=== PATIENT | female | born 1945 | race Caucasian/White ===

== ENCOUNTER 2016-10-12 19:41 | Inpatient (IN) | payer MEDICARE, OTHER ==
--- NOTE | ~2016-10-12 | DS ---
Discharge Summary [facility] [address] [place]. [address] NAME: MICHELINE PADILLA : 45 STATUS : DIS IN PAT#: [id number] AGE: 71 ADM/REG DATE : 10/12/16 MR#: [id number] REPORT SERV DATE: 10/22/16 DICTATED BY: ROCHELLE NICKERSON DATE: 10/21/16 REPORT STATUS : Draft TRANSCRIBED BY: MODL DATE: 10/21/16 ADMISSION DATE: 10/12/2016 DISCHARGE DATE: 10/21/2016 DIAGNOSES OF DISCHARGE: 1. Acute on chronic hypoxic hypercapnic respiratory failure, resolved. 2. Acute bronchitis. 3. Obstructive sleep apnea, on BiPAP at night. 4. Muscular dystrophy with quadriplegia. 5. Diabetes type 2, insulin dependent. 6. Hypertension. 7. Elevated liver function tests, resolved. 8. History of Crohn's disease. 9. Anxiety disorder. CONSULTANTS ON THE CASE: Pulmonary, Dr. Dickens; and Eugenio Apodaca, Pulmonary. PROCEDURE DONE DURING THIS HOSPITALIZATION: Include chest x-ray, portable, on 10/17/2016, showing stable chest x-ray. Repeat chest x-ray on 10/19/2016 show left basilar atelectasis versus small consolidation as well as left pleural effusion and right basilar atelectasis. Left hand x-ray shows no acute bone abnormality. There are some mild soft tissue swelling of the left hand and prominence of the thumb, but no other abnormalities. The patient's blood cultures have remained negative at discharge. HOSPITAL COURSE: This is a very pleasant 71-year-old female who is a patient of Dr. Kole Spicer, her primary care provider, Dr. Bhargav Krishna is her university services program associate. That she has a past medical history of muscular dystrophy with restrictive lung disease, presenting to [facility] with productive cough, wheezing, and increasing shortness of breath. It is very important to note that the patient has a BiPAP and used for obstructive sleep apnea at night. The patient has been admitted to Hospitalist Service with acute on chronic hypoxic hypercapnic respiratory failure as well as acute bronchitis with reactive airway disease. The patient use oxygen intermittently, and at her baseline, she is wheelchair bound. Here in the hospital, the patient has been placed on aggressive bronchodilator treatment nebulizers as well as BiPAP at night and p.r.n. for increasing shortness of breath. Her symptoms started to improve slowly and she required less BiPAP during the day and only on night. She did have an episode of elevation in liver function tests, but that has been resolved and also she had some increase of the white count, likely related to her steroids that has been tapered very slowly. The patient symptomatology improved and her acute on chronic hypercapnic respiratory failure resolved. On 10/21/2016, the patient has been ready for discharge from the pulmonary standpoint. MEDICATIONS AT DISCHARGE: Include aspirin 81 mg p.o. daily, Tenormin 25 after supper, coenzyme Q10 of 100 mg p.o. daily, also insulin regular per sliding scale and insulin NPH 12 units twice a day, Levaquin 750 p.o. daily for six more days, Cozaar 50 b.i.d., multivitamin one tablet p.o. daily, Protonix 40 p.o. daily, fish oil 1000 mg p.o. daily, Florastor one capsule p.o. b.i.d. six days, Zoloft 50 mg p.o. daily, Zoloft 10 mg p.o. daily, Sterapred Discharge Summary [address] [address] NAME: MICHELINE PADILLA : 45 STATUS : DIS IN PAT#: [id number] AGE: 71 ADM/REG DATE : 10/12/16 MR#: [id number] REPORT SERV DATE: 10/22/16 DICTATED BY: ROCHELLE NICKERSON DATE: 10/21/16 REPORT STATUS : Draft TRANSCRIBED BY: JAYE DATE: 10/21/16 double strength six-day pack #1 use as directed, and DuoNeb q.4 hours p.r.n. for shortness of breath. The patient was scheduled to have a polysomnography as an outpatient while she was in the hospital, so we are going to reschedule the outpatient polysomnography. Also, we will arrange a pulmonary followup with Dr. Krishna tomorrow or Tuesday on the 10/22/2016, 10/23/2016 and PCP follow up with Dr. Kole Spicer, PCP, in one week after discharge. We will arrange home health as well. This has been discussed extensively with the patient and the family. All the questions have been answered in full. CF/MODL Rochelle Nickerson M.D. / [id number] CC: Shilpi Pappas M.D. Nathan Mull IV, M.D.
--- NOTE | ~2016-10-12 | CN ---
Consultation Report [address] [place]. [address] NAME: MICHELINE PADILLA : 45 STATUS : ADM IN [facility]#: [id number] AGE: 71 ADM/REG DATE : 10/12/16 MR#: [id number] REPORT SERV DATE: 10/14/16 DICTATED BY: BASSEM DICKENS DATE: 10/13/16 REPORT STATUS : Draft TRANSCRIBED BY: MODL DATE: 10/13/16 PULMONARY CONSULT NOTE DATE OF CONSULTATION: 10/13/2016 REASON FOR CONSULTATION: Acute hypoxic respiratory failure. CHIEF COMPLAINT: Coughing and wheezing which started 24 hours ago. HISTORY OF PRESENT ILLNESS: Mrs. Padilla is a 71-year-old female with a past medical history of muscular dystrophy which is adult onset who had an acute onset of wheezing which started 24 hours ago and started producing sputum, she has been started on IV antibiotics and already feels better. She has had no sick contacts. However, the oxygen requirement is new, her chest x-ray shows minimal atelectasis. She does have sleep apnea and uses BiPAP at nighttime. Otherwise, the patient has no significant other symptoms other than what was noted above. PAST MEDICAL HISTORY: Muscular dystrophy, Crohn's disease, obstructive sleep apnea, diabetes, hyperlipidemia, history of nephrolithiasis, hyperlipidemia, pancreatitis, diastolic heart failure, pericardial effusion, and diverticulitis. HOME MEDICATIONS: Medication list reviewed, no significant pulmonary medications. ALLERGIES: IV CONTRAST, REGLAN, CODEINE. SOCIAL HISTORY: The patient has a history of smoking but quit around 15 years ago, currently . She is wheelchair bound. FAMILY HISTORY: Other family members with diabetes and heart disease along with multiple other cancers. REVIEW OF SYSTEMS: All pertinent review of systems reviewed and is otherwise negative. PHYSICAL EXAMINATION: VITAL SIGNS: Currently afebrile, heart rate 80s to 90s, respiratory rate around 15 to 20, oxygen saturation currently above 95% on 5 L, blood pressure currently systolic between 130s and 150s. HEENT: The patient has a thick neck consistent with that of someone who has sleep apnea. Neck is supple. PULMONARY: Diffuse bilateral wheezing with mild crackles, adequate air movement. CARDIAC: Regular rate, no murmurs. ABDOMEN: Soft, nontender, nondistended. EXTREMITIES: No significant lower extremity edema, pulses bilaterally. Consultation Report [address] [place]. [address] NAME: MICHELINE PADILLA : 45 STATUS : ADM IN PAT#: [id number] AGE: 71 ADM/REG DATE : 10/12/16 MR#: [id number] REPORT SERV DATE: 10/14/16 DICTATED BY: BASSEM DICKENS DATE: 10/13/16 REPORT STATUS : Draft TRANSCRIBED BY: MODL DATE: 10/13/16 MUSCULAR: Muscles are flaccid in the lower extremity with minimal upper extremity movement but can lift her arms against gravity. LABORATORY EXAMINATION: Mild leukocytosis which is improving, hemoglobin elevated at 17.7, procalcitonin negative, good kidney function. Bicarbonate is 24, arterial blood gas shows mild hypoxia. Chest x-ray: Mild atelectasis. ASSESSMENT AND PLAN: Mrs. Padilla is a 71-year-old female with a past medical history who seems to have an acute onset of bronchitis with hypoxia. 1. Acute hypoxic respiratory insufficiency: The patient is currently on oxygen therapy with atelectasis, should not be too concerning; however, she does have a 5 L oxygen requirement. I am a little concerned about the hemoglobin that is elevated with a hematocrit greater than 50 on admission and therefore outpatient evaluation for chronic hypoxia is warranted. Fortunately, I do not see chronic hypercapnia in this patient which would get us concerned for neuromuscular weakness and chronic retention of CO2. 2. Bronchitis: The patient seems to have an underlying bronchitis, I agree with current antibiotic regimen, I have started Solu-Medrol with Dulera in hopes that this will help. 3. Possible aspiration: The patient does not give any strong inclination of aspiration; however, the patient states that she will get a barium swallow in the morning. Thank you very much for this consultation. We will continue to follow along with you, please call us with any further questions or concerns. HFQ/MODL Bassem Dickens MD / [id number] CC: Drew Cunningham M.D.
--- NOTE | ~2016-10-12 | IDS ---
Interim Discharge Summary [facility] [address] [place]. [address] NAME: MICHELINE PADILLA : 45 STATUS : ADM IN [facility]#: [id number] AGE: 71 ADM/REG DATE : 10/12/16 MR#: [id number] REPORT SERV DATE: 10/18/16 DICTATED BY: MEI FORD DATE: 10/18/16 REPORT STATUS : Draft TRANSCRIBED BY: MODL DATE: 10/18/16 ADMISSION DATE: 10/12/2016 DISCHARGE DATE: CONSULTING PHYSICIAN: Dr. Dickens for Pulmonary and they signed off. INTERIM DIAGNOSES: 1. Acute hypoxic respiratory failure. 2. Acute bronchitis. 3. Obstructive sleep apnea. 4. Muscular dystrophy with quadriplegia. 5. Diabetes. 6. Hypertension. 7. Improving transaminases. 8. History of Crohn's disease. 9. Anxiety disorder. DIAGNOSTIC EXAMS: Chest x-ray on admission showing cardiomegaly and generation of small amount of bibasilar atelectasis, which is new. Swallowing study showing no laryngeal penetration or tracheal aspiration. Latest chest x-ray, stable findings. HOSPITAL COURSE: Please refer to the H and P done by Dr. Guerra dated on 10/13/2016. Briefly, this is a 71-year-old female, who comes in for shortness of breath. The patient has a history of muscular dystrophy and a history of recurrent bronchitis. She generally does not use any oxygen, and her baseline is that she is wheelchair bound. The patient comes in with a week of cough, but could not bring out the phlegm and one day prior to admission, there was increasing cough, increasing shortness of breath, dyspnea on exertion, undocumented fever, chills, and right pleuritic chest pain. She was then admitted by Dr. Guerra with an acute hypoxic respiratory failure. The patient had numerous x-rays, thinking that she has pneumonia with a lot of rhonchi and crackles in her lungs, but repeatedly did not show any clear pneumonia. The patient usually uses CPAP; however, she said that the mask is not a good fit. This might have brought her here as well, as she is hypoxic. The patient was placed on BiPAP. We got Pulmonary involved, and they added steroids together with the antibiotics. The patient seems to be stable and they signed off. Two days after they signed off, the patient went into respiratory distress, but the ABG done at that time, which I cannot find in the computer, and EKG and x-ray were unremarkable. We believe that she is having an anxiety attack, and we placed her on the BiPAP and this present setting seems to be making her feel better. We opted to keep the patient in the telemetry area because I believe that the patient can do fine with p.r.n. BiPAP, p.r.n. Ativan, and only BiPAP at night. The patient initially needed 6 L of oxygen during the day, now we are down to 3 L with some improvement of the rhonchi and crackles in her lungs. I suspect that we would be dealing with a prolonged course as she does not have much muscular effort and cough to mobilize the secretions. We are continuing the steroids, the bronchodilators, and the antibiotics for now. I have been monitoring her diabetes as well. She has a weird combination of NPH of only once a day and the regular insulin only twice a day. We placed her on subcu insulin protocol and rechecked her hemoglobin A1c, it was 5.3. I hesitate to Interim Discharge Summary [address] [place]. [address] NAME: MICHELINE PADILLA : 45 STATUS : ADM IN PAT#: [id number] AGE: 71 ADM/REG DATE : 10/12/16 MR#: [id number] REPORT SERV DATE: 10/18/16 DICTATED BY: MEI FORD. DATE: 10/18/16 REPORT STATUS : Draft TRANSCRIBED BY: JAYE DATE: 10/18/16 adjust this as this has been working for her for years. She did admit that she usually only eats twice a day, not much for lunch. She also had an episode of elevated LFTs, this has been improving. I opted to just watch this for now as she is asymptomatic in the abdominal area. A partner of mine will be following up the patient starting Tuesday. SAPNA/JAYE Mei Ford M.D. / [id number] CC: Shilpi Elam M.D.
--- NOTE | ~2016-10-12 | HP ---
History And Physical [address] [place]. [address] NAME: MICHELINE PADILLA : 45 STATUS : ADM IN [facility]#: [id number] AGE: 71 ADM/REG DATE : 10/12/16 MR#: [id number] REPORT SERV DATE: 10/13/16 DICTATED BY: HARITHA SHEA DATE: 10/13/16 REPORT STATUS : Draft TRANSCRIBED BY: MODL DATE: 10/13/16 DATE OF ADMISSION: 10/12/2016 CHIEF COMPLAINT: A 71-year-old female presenting with increasing shortness of breath. HISTORY OF PRESENTING ILLNESS: The patient's history was obtained through careful interview with the patient and coupled with review of [facility] and [facility] medical records. The patient, over the last week, has developed progressive cough, but it really became quite severe over the last 24 hours. It has been generally nonproductive and anything she does bring up, she just swallows. She has had shortness of breath characterized by dyspnea on exertion and has developed fevers and chills over the last 24 hours. She wonders if her shortness of breath was first exacerbated by sinus drainage and allergies from pollen exposure. She describes nausea, but no vomiting. No abdominal pain. No change of bowel or bladder habit. She claims her Crohn's disease is under good control. She describes right lower lung discomfort that radiates to the back, a soreness quality, 5 to 6 out of 10 severity, exacerbated by coughing. She claims her diabetes is under good control. REVIEW OF SYSTEMS: Otherwise, a 14-point review of systems was obtained and was negative. PAST MEDICAL HISTORY: 1. Muscular dystrophy, late onset, first acquired about 20 or 30 years ago, now wheelchair bound. 2. Gastroparesis. 3. Diabetes. 4. Crohn's disease. 5. Nephrolithiasis with history of stent placement under the care Dr. Krishnan. 6. Obstructive sleep apnea, on CPAP, followed by Dr. Krishna. 7. Hypertension. 8. Elevated cholesterol. 9. Cholelithiasis. 10.Pancreatitis. 11.Diastolic congestive heart failure. 12.Pericardial effusion. 13.Diverticulitis. 14.Renal hilum fatty mass measuring 6.5 x 4.0 cm. 15.Previous pneumonia. History And Physical [address] [address] NAME: MICHELINE PADILLA : 45 STATUS : ADM IN PAT#: [id number] AGE: 71 ADM/REG DATE : 10/12/16 MR#: [id number] REPORT SERV DATE: 10/13/16 DICTATED BY: HARITHA SHEA DATE: 10/13/16 REPORT STATUS : Draft TRANSCRIBED BY: JAYE DATE: 10/13/16 PAST SURGICAL HISTORY: 1. Hysterectomy. 2. Hip fracture, repaired, on the left side. 3. Breast biopsy. ALLERGIES: REGLAN, IV CONTRAST, AND CODEINE. SOCIAL HISTORY: Quit smoking in 2000. No alcohol abuse. Was , then remarried to her current . She previously worked in a doctor's office. She has been wheelchair bound for about 20 years. She has no biological children. She lives in [place], [place], on [facility]. FAMILY HISTORY: Diabetes; heart disease; extensive family history of cancer including breast cancer, colon cancer, pancreatic cancer, lung cancer, and kidney cancer; also family history of Parkinson's disease. CURRENT MEDICATIONS: Include aspirin 81 mg p.o. daily, atenolol 25 mg p.o. daily, coenzyme Q10, flaxseed, Humulin R, Humulin N 15 units subcutaneous twice a day, Cozaar 50 mg p.o. b.i.d., multivitamin, fish oil, Zoloft 50 mg p.o. daily, Zocor 10 mg p.o. daily, garlic supplement. PHYSICAL EXAMINATION: VITAL SIGNS: Temperature 98.3, pulse 103, blood pressure 184/73, respiratory rate 34, O2 saturation 86% on room air. GENERAL: An ill-appearing female, but in no evidence of severe distress. HEENT: Pupils equal, round, and reactive to light. No conjunctival pallor. No scleral icterus. Nares are patent. Oropharynx is clear of obstruction. Moist mucous membranes. NECK: Trachea midline. No thyromegaly. LYMPH: No cervical lymphadenopathy. No supraclavicular lymphadenopathy. RESPIRATORY: The patient has scattered crackles throughout examination. No active wheezes. No rales. She has a labored respiratory effort. CARDIOVASCULAR: Tachycardic. Regular rhythm. No murmurs, rubs, or gallops. No extremity edema is appreciated. ABDOMEN: Soft, nontender, nondistended. Normal bowel sounds auscultated throughout. No hepatosplenomegaly. DERMATOLOGICAL: Warm and dry extremities. No pallor, no cyanosis. PSYCHIATRIC: Normal affect. Good mood. Alert and oriented x3. LABORATORY DATA: White blood cell count 21.3, hemoglobin 17, hematocrit 51, platelets 297. Sodium 138, potassium 4.4, chloride 103, bicarb 29, BUN 14, creatinine 0.2, glucose 127, lactic acid 0.6. Liver enzymes within normal limits. STUDIES: 1. Chest x-ray by my own evaluation shows right middle lobe pneumonia, possible small left pleural effusion. 2. EKG by my own evaluation shows sinus rhythm, 99 beats per minute. History And Physical [address] [address] NAME: MICHELINE PADILLA : 45 STATUS : ADM IN [facility]#: [id number] AGE: 71 ADM/REG DATE : 10/12/16 MR#: [id number] REPORT SERV DATE: 10/13/16 DICTATED BY: HARITHA SHEA DATE: 10/13/16 REPORT STATUS : Draft TRANSCRIBED BY: JAYE DATE: 10/13/16 ASSESSMENT AND PLAN: 1. Sepsis with positive criteria that includes white blood cell count of 21.2, tachycardia, tachypnea. Check blood cultures. Place on appropriate IV antibiotics. 2. Right-sided pneumonia. For now, considered community-acquired pneumonia. Check blood cultures. Check swallow studies. Place on IV antibiotics. 3. Hypoxic respiratory failure. Provide supportive care. 4. Obstructive sleep apnea. Continue CPAP nightly. 5. Muscular dystrophy with quadriparesis and wheelchair bound. 6. Diabetes. Check hemoglobin A1c. Continue basal insulin and sliding scale insulin. KPL/MODL Haritha Shea M.D. / [id number] CC: Shilpi Elam M.D. Nathan Mull IV, M.D.
[~2016-10-12 19:41] MED LIST: APRES25 PO; ASAB PO; ASACOL PO; ATEN25 PO; ATROVENTUD INH; AUG875 PO; BL CHROMIUM200 MCG PO; CALTRA600D PO; CENTRUM TAB1 TAB PO; CITRACAL PO; COLCH6 PO; COZ25 PO; COZ50 PO; DUONEB INH; FISH OIL 500 MG PO; FLAG500TAB PO; FLAXSEED OIL PO; FORTAMET500 MG PO; HUMULIN N1 ML SC; HUMULIN R1 ML SC; INSNOVN SC; INSNOVR SC; LEVAQUIN5T PO; LEVAQUIN750 MG PO; LOSARTAN PO; MAGNESIUM OTC PO; MAGNESIUM PO; MICROZIDE PO; MULTIVIT/MIN PO; NEXIUM40 PO; NIACIN 500 PO; NIASPAN500 PO; OMNICEF300 PO; P10 PO; P20 PO; PCET PO; PRILOSEC40 MG PO; PROVENTSOL INH; RESVERATROL PO; SUPER B-100 PO; TESS PO; TUMSROLL PO; VITC500 PO; VITE PO; ZOCOR10 PO; [UNRECOGNIZED DRUG - OTHER] PO; [UNRECOGNIZED DRUG - OTHER] PO
[2016-10-12 20:19] LABS: BASOPHILS 0.1 %; BASOPHILS ABSOLUTE 0.02 10/3/uL (0.0-0.16); EOSINOPHILS 0.2 %; EOSINOPHILS ABSOLUTE 0.05 10/3/uL (0.0-0.53); ER CBC TAT 0 Hrs 11 Mins; HEMOGLOBIN 17.7 g/dL (12.0-16.0); IMMATURE GRANULOCYTES 0.5 %; IMMATURE GRANULOCYTES ABSOLUTE 0.11 10/3/uL (0.0-0.11); LYMPHOCYTES 3.9 %; LYMPHOCYTES ABSOLUTE 0.82 10/3/uL (0.67-4.30); MEAN CORPUS HGB CONC 34.6 g/dL (32.0-36.0); MEAN CORPUSCULAR HEMOGLOB 31.3 pg (26.0-34.0); MEAN CORPUSCULAR VOLUME 90.3 fL (80-100); MEAN PLATELET VOLUME 11.7 fL (9.2-13.0); MONOCYTES 3.6 %; MONOCYTES ABSOLUTE 0.77 10/3/uL (0.21-1.20); NEUTROPHILS 91.7 %; NEUTROPHILS ABSOLUTE 19.45 10/3/uL (2.02-8.40); NUCLEATED RED BLOOD CELLS 0.6 /100WBC (0-0); PLATELET COUNT 297 10/3/uL (150-400); RED CELL COUNT 5.66 10/6/uL (4.0-5.6); WHITE BLOOD CELLS 21.2 10/3/uL (4.5-10.5)
[2016-10-12 20:20] LABS: HEMATOCRIT 51.1 % (36.0-48.0); MANUAL DIFF NO %
[2016-10-12 20:30] LABS: ALLENS TEST Pos; CARBOXYHEMOGLOBIN 2.9 % (0-3); DEVICE NC; HCO3 (ACTUAL BICARBONATE) 19.5 MEQ/L (23-27); HEMOBLOGIN CONTENT 16.7 G/DL (12-16); INSTRUMENT SERIAL # 8087; METHEMOGLOBIN 0.4 % (0-3); O2 CONTENT 21.5 VOL% (18-24); PCO2 (CO2 TENSION) 35 MMHG (35-45); PO2 (O2 TENSION) 76 MMHG (79-93); SAMPLE Arterial; pH 7.36 (7.37-7.43)
[2016-10-12 20:33] LABS: A/G RATIO 0.7 (0.7-1.9); ALBUMIN 3.5 G/DL (3.5-5.0); BUN (BLOOD UREA NITROGEN) 14 MG/DL (6-23); CALCIUM, SERUM 9.1 MG/DL (8.5-10.4); CHLORIDE, SERUM 103 MMOL/L (96-112); CO2 (CARBON DIOXIDE) 24 MMOL/L (24-34); CREATININE 0.21 MG/DL (0.55-1.02); GFR AFRICAN AMERICAN 150 ML/MIN (>=60); GFR NON AFRICAN AMERICAN 130 ML/MIN (>=60); GLOBULIN 4.9 G/DL (2.5-4.1); SGPT(ALT) 35 U/L (5-65); SODIUM, SERUM 138 MMOL/L (135-148); TOTAL BILIRUBIN 0.7 MG/DL (0-1.2); TOTAL PROTEIN 8.4 G/DL (6.0-8.5)
[2016-10-12] MEDS ORDERED: COZ50 PO (20:33)
[2016-10-12] MEDS ORDERED: THERGRANM PO (20:33)
[2016-10-12] MEDS ORDERED: ATEN25 PO (20:33)
[2016-10-12 20:34] LABS: ALKALINE PHOSPHATASE 111 U/L (45-117); GLUCOSE, SERUM 127 MG/DL (60-99); POTASSIUM, SERUM 4.4 MMOL/L (3.5-5.3); SGOT(AST) 47 U/L (5-40)
[2016-10-12] MEDS ORDERED: HALF81 PO (20:34)
[2016-10-12] MEDS ORDERED: ZOL50 PO (20:34)
[2016-10-12] MEDS ORDERED: ZOCOR10 PO (20:34)
[2016-10-12] MEDS ORDERED: BL FLAX SEED1000 MG PO (20:34)
[2016-10-12] MEDS ORDERED: FISH-EPA1000 MG PO (20:34)
[2016-10-12] MEDS ORDERED: CO Q-10100 MG PO (20:35)
[2016-10-12] MEDS ORDERED: GARLIC PO (20:35)
[2016-10-12] MEDS ORDERED: HUMULIN R1 ML SC (20:36)
[2016-10-12] MEDS ORDERED: HUMULIN N1 ML SC (20:36)
[2016-10-12 20:42] LABS: BAND NEUTROPHILS 4 %; ER DIFF TAT 0 Hrs 34 Mins; LYMPHOCYTES 3 %; LYMPHOCYTES ABSOLUTE (CALC) 0.64 10/3/uL (0.67-4.30); MONOCYTES 1 %; MONOCYTES ABSOLUTE (CALC) 0.21 10/3/uL (0.21-1.20); NEUTROPHILS ABSOLUTE (CALC) 20.35 10/3/uL (2.02-8.40); PLATELET ESTIMATE ADQ (ADEQUATE); RBC MORPHOLOGY NORM (NORMAL); SEGMENTED NEUTROPHIL (0) 92 %; TOTAL NUCLEATED CELLS 100
[2016-10-12 21:36] LABS: PROCALCITONIN <0.05 ng/mL (<0.5)
[2016-10-13 06:47] LABS: BASOPHILS 0.1 %; BASOPHILS ABSOLUTE 0.02 10/3/uL (0.0-0.16); EOSINOPHILS 0 %; HEMATOCRIT 48.7 % (36.0-48.0); HEMOGLOBIN 16.4 g/dL (12.0-16.0); IMMATURE GRANULOCYTES 0.4 %; IMMATURE GRANULOCYTES ABSOLUTE 0.07 10/3/uL (0.0-0.11); LYMPHOCYTES 3.1 %; LYMPHOCYTES ABSOLUTE 0.48 10/3/uL (0.67-4.30); MEAN CORPUS HGB CONC 33.7 g/dL (32.0-36.0); MEAN CORPUSCULAR HEMOGLOB 30.9 pg (26.0-34.0); MEAN CORPUSCULAR VOLUME 91.9 fL (80-100); MEAN PLATELET VOLUME 11.1 fL (9.2-13.0); MONOCYTES 0.6 %; MONOCYTES ABSOLUTE 0.09 10/3/uL (0.21-1.20); NEUTROPHILS 95.8 %; NEUTROPHILS ABSOLUTE 14.96 10/3/uL (2.02-8.40); PLATELET COUNT 248 10/3/uL (150-400); WHITE BLOOD CELLS 15.6 10/3/uL (4.5-10.5)
[2016-10-13 06:49] LABS: MANUAL DIFF NO %
[2016-10-13 06:53] LABS: PARTIAL THROMBO TIME 25.7 SEC (22.5-37.2); PROTIME (NOT ORD) 13.4 SEC (12.0-14.5)
[2016-10-13 07:10] LABS: A/G RATIO 0.7 (0.7-1.9); ALBUMIN 3.2 G/DL (3.5-5.0); CALCIUM, SERUM 9.1 MG/DL (8.5-10.4); CHLORIDE, SERUM 108 MMOL/L (96-112); CO2 (CARBON DIOXIDE) 24 MMOL/L (24-34); GFR AFRICAN AMERICAN 134 ML/MIN (>=60); GFR NON AFRICAN AMERICAN 115 ML/MIN (>=60); GLOBULIN 4.3 G/DL (2.5-4.1); SGOT(AST) 20 U/L (5-40); SGPT(ALT) 28 U/L (5-65); SODIUM, SERUM 142 MMOL/L (135-148); TOTAL BILIRUBIN 0.3 MG/DL (0-1.2); TOTAL PROTEIN 7.5 G/DL (6.0-8.5); TROPONIN I <0.02 NG/ML (<0.05)
[2016-10-13 07:11] LABS: ALKALINE PHOSPHATASE 98 U/L (45-117); BUN (BLOOD UREA NITROGEN) 19 MG/DL (6-23); GLUCOSE, SERUM 229 MG/DL (60-99); ULTRASENSITIVE TSH 0.601 MCIU/ML (0.358-3.740)
[2016-10-13 07:16] LABS: PLATELET ESTIMATE ADQ (ADEQUATE); RBC MORPHOLOGY NORM (NORMAL)
[2016-10-14 06:08] LABS: BASOPHILS 0 %; EOSINOPHILS 0 %; HEMATOCRIT 46.4 % (36.0-48.0); HEMOGLOBIN 15.2 g/dL (12.0-16.0); IMMATURE GRANULOCYTES 0.3 %; IMMATURE GRANULOCYTES ABSOLUTE 0.04 10/3/uL (0.0-0.11); LYMPHOCYTES 5.2 %; LYMPHOCYTES ABSOLUTE 0.77 10/3/uL (0.67-4.30); MANUAL DIFF NO %; MEAN CORPUS HGB CONC 32.8 g/dL (32.0-36.0); MEAN CORPUSCULAR HEMOGLOB 30.4 pg (26.0-34.0); MEAN CORPUSCULAR VOLUME 92.8 fL (80-100); MEAN PLATELET VOLUME 10.7 fL (9.2-13.0); MONOCYTES 1.7 %; MONOCYTES ABSOLUTE 0.25 10/3/uL (0.21-1.20); NEUTROPHILS 92.8 %; NEUTROPHILS ABSOLUTE 13.86 10/3/uL (2.02-8.40); PLATELET COUNT 265 10/3/uL (150-400); RBC DISTRIBUTION WIDTH 15.2 % (12.0-16.0); WHITE BLOOD CELLS 14.9 10/3/uL (4.5-10.5)
[2016-10-14 06:15] LABS: CALCIUM, SERUM 8.8 MG/DL (8.5-10.4); CHLORIDE, SERUM 110 MMOL/L (96-112); CO2 (CARBON DIOXIDE) 25 MMOL/L (24-34); CREATININE 0.17 MG/DL (0.55-1.02); GFR AFRICAN AMERICAN 161 ML/MIN (>=60); GFR NON AFRICAN AMERICAN 139 ML/MIN (>=60); POTASSIUM, SERUM 4.1 MMOL/L (3.5-5.3); SODIUM, SERUM 145 MMOL/L (135-148)
[2016-10-14 06:21] LABS: BUN (BLOOD UREA NITROGEN) 23 MG/DL (6-23); GLUCOSE, SERUM 171 MG/DL (60-99)
[2016-10-16 00:01] LABS: ALLENS TEST Pos; BE (BASE EXCESS) 1.8 MEQ/L (0 +/- 2.5); CARBOXYHEMOGLOBIN 0.6 % (0-3); DEVICE NC; HCO3 (ACTUAL BICARBONATE) 30.1 MEQ/L (23-27); HEMOBLOGIN CONTENT 16.2 G/DL (12-16); INSTRUMENT SERIAL # 8083; METHEMOGLOBIN 0.4 % (0-3); O2 CONTENT 21.8 VOL% (18-24); OPERATOR ID 16503; PCO2 (CO2 TENSION) 62 MMHG (35-45); PO2 (O2 TENSION) 90 MMHG (79-93); SAMPLE Arterial
[2016-10-16 01:56] LABS: BASOPHILS 0.1 %; BASOPHILS ABSOLUTE 0.01 10/3/uL (0.0-0.16); EOSINOPHILS 0 %; HEMOGLOBIN 15.5 g/dL (12.0-16.0); IMMATURE GRANULOCYTES 0.4 %; IMMATURE GRANULOCYTES ABSOLUTE 0.07 10/3/uL (0.0-0.11); LYMPHOCYTES 5.9 %; LYMPHOCYTES ABSOLUTE 0.97 10/3/uL (0.67-4.30); MEAN CORPUS HGB CONC 33.7 g/dL (32.0-36.0); MEAN CORPUSCULAR HEMOGLOB 31.3 pg (26.0-34.0); MEAN CORPUSCULAR VOLUME 92.9 fL (80-100); MEAN PLATELET VOLUME 10.8 fL (9.2-13.0); MONOCYTES 3.9 %; MONOCYTES ABSOLUTE 0.64 10/3/uL (0.21-1.20); NEUTROPHILS 89.7 %; NEUTROPHILS ABSOLUTE 14.72 10/3/uL (2.02-8.40); RBC DISTRIBUTION WIDTH 15.2 % (12.0-16.0); RED CELL COUNT 4.95 10/6/uL (4.0-5.6); WHITE BLOOD CELLS 16.4 10/3/uL (4.5-10.5)
[2016-10-16 01:57] LABS: MANUAL DIFF NO %; PLATELET COUNT 347 10/3/uL (150-400)
[2016-10-16 02:11] LABS: A/G RATIO 0.7 (0.7-1.9); ALBUMIN 2.8 G/DL (3.5-5.0); CALCIUM, SERUM 8.3 MG/DL (8.5-10.4); CHLORIDE, SERUM 110 MMOL/L (96-112); GFR AFRICAN AMERICAN 134 ML/MIN (>=60); GFR NON AFRICAN AMERICAN 115 ML/MIN (>=60); POTASSIUM, SERUM 3.8 MMOL/L (3.5-5.3); SGOT(AST) 136 U/L (5-40); SGPT(ALT) 149 U/L (5-65); SODIUM, SERUM 148 MMOL/L (135-148); TOTAL BILIRUBIN 0.2 MG/DL (0-1.2); TOTAL PROTEIN 6.8 G/DL (6.0-8.5)
[2016-10-16 02:16] LABS: ALKALINE PHOSPHATASE 115 U/L (45-117); BUN (BLOOD UREA NITROGEN) 28 MG/DL (6-23); CO2 (CARBON DIOXIDE) 30 MMOL/L (24-34); GLUCOSE, SERUM 113 MG/DL (60-99)
[2016-10-16 04:24] LABS: ALLENS TEST Pos; BE (BASE EXCESS) 4.4 MEQ/L (0 +/- 2.5); BIPAP 16/6 cm.H2O; CARBOXYHEMOGLOBIN 0.9 % (0-3); HCO3 (ACTUAL BICARBONATE) 31.2 MEQ/L (23-27); HEMOBLOGIN CONTENT 16.2 G/DL (12-16); INSTRUMENT SERIAL # 8083; METHEMOGLOBIN 0.3 % (0-3); O2 CONTENT 21.8 VOL% (18-24); OPERATOR ID 30014; PCO2 (CO2 TENSION) 54 MMHG (35-45); PO2 (O2 TENSION) 85 MMHG (79-93); SAMPLE Arterial; pH 7.38 (7.37-7.43)
[2016-10-18 06:44] LABS: A/G RATIO 0.8 (0.7-1.9); ALKALINE PHOSPHATASE 97 U/L (45-117); BASOPHILS 0.2 %; BASOPHILS ABSOLUTE 0.02 10/3/uL (0.0-0.16); BUN (BLOOD UREA NITROGEN) 28 MG/DL (6-23); CALCIUM, SERUM 9.1 MG/DL (8.5-10.4); CHLORIDE, SERUM 105 MMOL/L (96-112); CO2 (CARBON DIOXIDE) 34 MMOL/L (24-34); CREATININE < 0.15 MG/DL (0.55-1.02); EOSINOPHILS 0 %; GFR AFRICAN AMERICAN 168 ML/MIN (>=60); GFR NON AFRICAN AMERICAN 145 ML/MIN (>=60); GLUCOSE, SERUM 141 MG/DL (60-99); HEMOGLOBIN 16.5 g/dL (12.0-16.0); IMMATURE GRANULOCYTES 1.1 %; IMMATURE GRANULOCYTES ABSOLUTE 0.15 10/3/uL (0.0-0.11); LYMPHOCYTES 9.7 %; LYMPHOCYTES ABSOLUTE 1.28 10/3/uL (0.67-4.30); MEAN CORPUS HGB CONC 32.4 g/dL (32.0-36.0); MEAN CORPUSCULAR HEMOGLOB 30.1 pg (26.0-34.0); MEAN CORPUSCULAR VOLUME 92.7 fL (80-100); MEAN PLATELET VOLUME 10.4 fL (9.2-13.0); MONOCYTES 4.3 %; MONOCYTES ABSOLUTE 0.57 10/3/uL (0.21-1.20); NEUTROPHILS 84.7 %; NEUTROPHILS ABSOLUTE 11.18 10/3/uL (2.02-8.40); PLATELET COUNT 383 10/3/uL (150-400); POTASSIUM, SERUM 3.7 MMOL/L (3.5-5.3); RBC DISTRIBUTION WIDTH 14.6 % (12.0-16.0); RED CELL COUNT 5.49 10/6/uL (4.0-5.6); SGOT(AST) 15 U/L (5-40); SGPT(ALT) 78 U/L (5-65); SODIUM, SERUM 142 MMOL/L (135-148); TOTAL BILIRUBIN 0.4 MG/DL (0-1.2); WHITE BLOOD CELLS 13.2 10/3/uL (4.5-10.5)
[2016-10-18 06:48] LABS: HEMATOCRIT 50.9 % (36.0-48.0); MANUAL DIFF NO %
[2016-10-19 11:04] LABS: BASOPHILS 0.1 %; BASOPHILS ABSOLUTE 0.02 10/3/uL (0.0-0.16); EOSINOPHILS 0.1 %; EOSINOPHILS ABSOLUTE 0.01 10/3/uL (0.0-0.53); HEMATOCRIT 51.6 % (36.0-48.0); HEMOGLOBIN 16.9 g/dL (12.0-16.0); IMMATURE GRANULOCYTES 1.3 %; IMMATURE GRANULOCYTES ABSOLUTE 0.22 10/3/uL (0.0-0.11); LYMPHOCYTES 9.1 %; LYMPHOCYTES ABSOLUTE 1.48 10/3/uL (0.67-4.30); MANUAL DIFF NO %; MEAN CORPUS HGB CONC 32.8 g/dL (32.0-36.0); MEAN CORPUSCULAR HEMOGLOB 30.6 pg (26.0-34.0); MEAN CORPUSCULAR VOLUME 93.3 fL (80-100); MEAN PLATELET VOLUME 10.2 fL (9.2-13.0); MONOCYTES ABSOLUTE 0.65 10/3/uL (0.21-1.20); NEUTROPHILS 85.4 %; NEUTROPHILS ABSOLUTE 13.94 10/3/uL (2.02-8.40); PLATELET COUNT 381 10/3/uL (150-400); RBC DISTRIBUTION WIDTH 14.6 % (12.0-16.0); RED CELL COUNT 5.53 10/6/uL (4.0-5.6); WHITE BLOOD CELLS 16.3 10/3/uL (4.5-10.5)
[2016-10-19 11:15] LABS: BUN (BLOOD UREA NITROGEN) 27 MG/DL (6-23); CALCIUM, SERUM 9.2 MG/DL (8.5-10.4); CHLORIDE, SERUM 107 MMOL/L (96-112); CO2 (CARBON DIOXIDE) 33 MMOL/L (24-34); CREATININE 0.29 MG/DL (0.55-1.02); GFR AFRICAN AMERICAN 135 ML/MIN (>=60); GFR NON AFRICAN AMERICAN 116 ML/MIN (>=60); GLUCOSE, SERUM 174 MG/DL (60-99); POTASSIUM, SERUM 3.5 MMOL/L (3.5-5.3); SODIUM, SERUM 145 MMOL/L (135-148)
[2016-10-20 05:51] LABS: HEMATOCRIT 49.4 % (36.0-48.0); HEMOGLOBIN 16.2 g/dL (12.0-16.0); MEAN CORPUS HGB CONC 32.8 g/dL (32.0-36.0); MEAN CORPUSCULAR HEMOGLOB 30.2 pg (26.0-34.0); MEAN PLATELET VOLUME 10.9 fL (9.2-13.0); PLATELET COUNT 317 10/3/uL (150-400); RBC DISTRIBUTION WIDTH 14.7 % (12.0-16.0); RED CELL COUNT 5.37 10/6/uL (4.0-5.6)
[2016-10-20 05:52] LABS: MANUAL DIFF YES %
[2016-10-20 06:10] LABS: A/G RATIO 0.9 (0.7-1.9); ALBUMIN 2.7 G/DL (3.5-5.0); ALKALINE PHOSPHATASE 86 U/L (45-117); BUN (BLOOD UREA NITROGEN) 27 MG/DL (6-23); CHLORIDE, SERUM 105 MMOL/L (96-112); CO2 (CARBON DIOXIDE) 30 MMOL/L (24-34); CREATININE 0.15 MG/DL (0.55-1.02); GFR AFRICAN AMERICAN 168 ML/MIN (>=60); GFR NON AFRICAN AMERICAN 145 ML/MIN (>=60); GLOBULIN 3.1 G/DL (2.5-4.1); GLUCOSE, SERUM 131 MG/DL (60-99); POTASSIUM, SERUM 4.6 MMOL/L (3.5-5.3); SGOT(AST) 11 U/L (5-40); SGPT(ALT) 51 U/L (5-65); SODIUM, SERUM 142 MMOL/L (135-148); TOTAL BILIRUBIN 0.3 MG/DL (0-1.2); TOTAL PROTEIN 5.8 G/DL (6.0-8.5)
[2016-10-20 06:24] LABS: LYMPHOCYTES 5 %; LYMPHOCYTES ABSOLUTE (CALC) 0.95 10/3/uL (0.67-4.30); MONOCYTES 5 %; MONOCYTES ABSOLUTE (CALC) 0.95 10/3/uL (0.21-1.20); PLATELET ESTIMATE ADQ (ADEQUATE); RBC MORPHOLOGY NORM (NORMAL); SEGMENTED NEUTROPHIL (0) 90 %; TOTAL NUCLEATED CELLS 100
[2016-10-21 07:47] LABS: HEMATOCRIT 49.2 % (36.0-48.0); HEMOGLOBIN 16.3 g/dL (12.0-16.0); MEAN CORPUS HGB CONC 33.1 g/dL (32.0-36.0); MEAN CORPUSCULAR HEMOGLOB 30.5 pg (26.0-34.0); MEAN PLATELET VOLUME 10.5 fL (9.2-13.0); PLATELET COUNT 281 10/3/uL (150-400); RED CELL COUNT 5.35 10/6/uL (4.0-5.6); WHITE BLOOD CELLS 19.3 10/3/uL (4.5-10.5)
[2016-10-21 07:51] LABS: MANUAL DIFF YES %
[2016-10-21 08:06] LABS: BUN (BLOOD UREA NITROGEN) 24 MG/DL (6-23); CALCIUM, SERUM 8.9 MG/DL (8.5-10.4); CHLORIDE, SERUM 107 MMOL/L (96-112); CO2 (CARBON DIOXIDE) 33 MMOL/L (24-34); GLUCOSE, SERUM 124 MG/DL (60-99); POTASSIUM, SERUM 3.8 MMOL/L (3.5-5.3); SODIUM, SERUM 147 MMOL/L (135-148)
[2016-10-21 08:18] LABS: CREATININE 0.17 MG/DL (0.55-1.02); GFR AFRICAN AMERICAN 161 ML/MIN (>=60); GFR NON AFRICAN AMERICAN 139 ML/MIN (>=60)
[2016-10-21 08:40] LABS: BAND NEUTROPHILS 2 %; EOSINOPHILS 1 %; EOSINOPHILS ABSOLUTE (CALC) 0.19 10/3/uL (0.0-0.53); LYMPHOCYTES 20 %; LYMPHOCYTES ABSOLUTE (CALC) 3.86 10/3/uL (0.67-4.30); MONOCYTES 13 %; MONOCYTES ABSOLUTE (CALC) 2.51 10/3/uL (0.21-1.20); NEUTROPHILS ABSOLUTE (CALC) 12.74 10/3/uL (2.02-8.40); PLATELET ESTIMATE ADQ (ADEQUATE); SEGMENTED NEUTROPHIL (0) 64 %; TOTAL NUCLEATED CELLS 100
[2016-10-21 08:41] LABS: RBC MORPHOLOGY NORM (NORMAL)
[2016-10-21] MEDS ORDERED: FLORASTOR250 MG PO (10:51)
[2016-10-21] MEDS ORDERED: PROTONIX PO (10:51)
[2016-10-21] MEDS ORDERED: LEVAQUIN750 MG PO (10:52)
[2016-10-21] MEDS ORDERED: STERAPRED DS10 MG (10:52)
== END 2016-10-21 14:32 | disposition home health service (06) | DRG 871 ==
LOC: ER 19:41 → 2SO 21:44
PROVIDERS: Hospitalist; Internal Medicine; Nurse Practitioner Acute Care
PROC: 5A09557 Assistance with Respiratory Ventilation, Greater than 96 Consecutive Hours, Continuous Positive Airway Pressure (ICD-10-PCS; principal; 2016-10-16)
DX: A41.9 Sepsis, unspecified organism (principal); J96.21 Acute and chronic respiratory failure with hypoxia; G71.0 Muscular dystrophy; G82.50 Quadriplegia, unspecified; J96.22 Acute and chronic respiratory failure with hypercapnia; I50.32 Chronic diastolic (congestive) heart failure; K50.90 Crohn's disease, unspecified, without complications; I11.0 Hypertensive heart disease with heart failure; K31.84 Gastroparesis; E11.43 Type 2 diabetes mellitus with diabetic autonomic (poly)neuropathy; G47.33 Obstructive sleep apnea (adult) (pediatric); E78.00 Pure hypercholesterolemia, unspecified; Z87.891 Personal history of nicotine dependence; Z99.3 Dependence on wheelchair; Z79.4 Long term (current) use of insulin; J20.9 Acute bronchitis, unspecified; F41.9 Anxiety disorder, unspecified; J45.909 Unspecified asthma, uncomplicated; E78.5 Hyperlipidemia, unspecified
CPT/HCPCS: 36600; 71010; 73130-LT; 74230; 80048; 80053; 82330; 82803; 82805; 82947; 82962; 83605; 83735; 83880; 84132; 84145; 84295; 84443; 84484; 85014; 85025; 85610; 85730; 87040; 87070; 87205; 87449; 92610-GN; 92611-GN; 93005; 94640; 94660; 94668; 96374; 96375; 99291; A9270-GY; G8996-CI-GN; G8997-CI-GN; G8998-CI-GN; J0360; J0456; J1940; J2405; J2920; J2930